=== PATIENT | male | born 1975 | race Caucasian/White ===

== ENCOUNTER 2023-02-24 13:41 | Emergency (ER) | payer MEDICAID, SELFPAY ==
[2023-02-24 13:46] VITALS: BP 140/70; PULSE 110; O2SAT 98
[2023-02-24 13:52] VITALS: BP 139/71; PULSE 95; RESP 16; TEMP 36.8; O2SAT 95; BMI 30.8
--- NOTE | 2023-02-24 14:08 | ECG_ITS ---
Test Reason : OVERDOSE Blood Pressure : / mmHG Vent. Rate : 102 BPM Atrial Rate : 102 BPM P-R Int : 132 ms QRS Dur : 084 ms QT Int : 370 ms P-R-T Axes : 079 097 069 degrees QTc Int : 482 ms Sinus tachycardia Rightward axis Borderline ECG No previous ECGs available Referred By: Generic ED Physician Electronically Signed By:NIKOLAY EVANS MD
--- NOTE | 2023-02-24 14:32 | PC.NURSE ---
Pt changed over by security belongings in . Pt is calm and cooperative. Inquiring about where he car is/was, informed this RN unaware but [employer] on scene and number given to contact. Pt denies SI, denies request for detox services. Breathing unlabored. Awakes easily.
--- NOTE | 2023-02-24 15:27 | PC.NURSE ---
Patient sitting up on stretcher speaking on the phone. Patient with no s/s of distress at this time, speaking in full sentences and breathing without issue.
--- NOTE | 2023-02-24 15:48 | ED_ITS ---
HPI - Overdose General Chief Complaint: Overdose Stated Complaint: FOUND UNRESPONSIVE,8 MG NARCAN,AWAKE Time Seen by Provider: 02/24/23 15:40 Source: patient Mode of arrival: EMS Limitations: no limitations History of Present Illness HPI Narrative: 47-year-old male who presents emergency department for evaluation of an accidental overdose on intranasal heroin. Patient states he has been clean and sober for a long time but he drank 2 nips and then used 1 bag of intranasal heroin. Patient has no memory of what happened after that. The patient was found in a car unresponsive. First responders gave the patient 8 mg of intranasal Narcan and the patient woke up. The patient has been in the emergency department for approximately 2 hours, he is awake and alert and is requesting discharge. Patient was evaluated by our recovery counselor patient states that he does not want to get in to a drug treatment program and he does not want maintenance methadone or Suboxone Related Data Allergies Allergy/AdvReac Type Severity Reaction Status Date / Time No Known Allergies Allergy Verified 02/24/23 13:57 Review of Systems Review of Systems: Yes all other systems are reviewed and are negative [facility] Past Medical History [facility] Narrative: Social history: The patient does smoke cigarettes, rarely drinks alcohol. He states he does have a history of heroin use disorder but has been clean and sober for a long period of time and he used intranasal heroin today for the 1st time in many months. Social History Alcohol intake: current Smoked in Last 30 Days: Yes Use of substances other than those prescribed or required for medical reasons: Yes Substance Use Type: Hallucinogens Substance Use Frequency: Occasionally Physical Exam Vital Signs: Vital Signs: Last Vital Signs Temp 98.3 F 02/24/23 13:52 Pulse 95 02/24/23 13:52 Resp 16 02/24/23 13:52 BP 139/71 02/24/23 13:52 Pulse Ox 95 02/24/23 13:52 O2 Del Method Room Air 02/24/23 13:52 BMI result Body Mass Index 30.8 Vital signs nor Exam: General: Awake, alert in no distress Head: Normocephalic, atraumatic EENT: PERRL, Lids normal, sclera normal, conjunctiva normal, nose normal , ears normal, throat without erythema or exudates Neck: Supple, no adenopathy, no trachea midline or C-spine tenderness Lung: breath sounds symmetric, no wheezing, rales or rhonchi Chest: symmetric movement, nontender Heart: regular rate and rhythm, normal S1, S2 no murmurs or rubs Abdomen: soft, non-tender, nondistended, normal bowel sounds Back: no vertebral tenderness, no CVAT Extremities: no deformities, moves all extremities symmetrically Neuro: Awake, alert, oriented, normal speech, cranial nerves intact, moves all extremities symmetrically Psych: Pleasant, cooperative Medical Decision Making Medical Decision Making MDM Narrative: 47-year-old male with a history of heroin use disorder who states he has been clean and sober for a significant period of time who drink 2 nips of alcohol and used 1 bag of intranasal heroin. He was found unresponsive in his car and 1st responders gave him 8 mg of intranasal Narcan. The patient has been awake and alert since receiving the Narcan. He currently has no complaints his neurologic exam was unremarkable. Patient was seen by our recovery counselor and the patient does not want any further treatment therefore he will be discharged home. He was given an intranasal Narcan to take with him. Differential Diagnosis Differential Diagnoses: The differential diagnosis associated with the presentation includes Differential diagnosis includes was not limited to heroin overdose, overdose Discharge Plan Discharge Clinical Impression: Accidental heroin overdose Qualifiers: Encounter type: initial encounter Qualified Code(s): T40.1X1A - Poisoning by heroin, accidental (unintentional), initial encounter Patient Disposition: Home, Self-Care Instructions: Opioid Use Disorder (ED) Additional Instructions: Your found unresponsive in your car, 1st responders gave you 8 mg of intranasal Narcan which caused her to wake up. Using street drugs is very dangerous since all street drugs can be contaminated with fentanyl. If you continue to use street drugs that the you can from an overdose Your are being discharged home with intranasal Narcan. If you are going to continue to use heroin, you should make sure that there is a sober person with you that is not using drugs and that this person can administer intranasal Narcan in the event that you stop breathing. Follow-up with your doctor in 2 days. Please return to the emergency department if your symptoms get worse or if you develop any symptoms that are concerning to you.
--- NOTE | 2023-02-24 15:50 | HO.SUDE ---
Met with pt in ED6h who is here for OD. Pt reports he took 2 nips and i bag of heroin nasally because someone offered it to him, but he hasn't used in over 1 year. pt informs this is his 1st overdose and that he does not intend to take heroin again. T/W reviewed harm reduction and overdose prevention with pt who verbalized understanding and has no interest in recovery resources or suppot at this time.
[2023-02-24] MEDS: Naloxone HCl Nasal TAKE HOME 4 MG SPRAY 8 MG NOSTRILALT (16:13)
[2023-02-24 17:15] VITALS: BP 138/75; PULSE 84; RESP 15; O2SAT 97
== END 2023-02-24 17:15 | disposition home or self-care (01) ==
PROVIDERS: Emergency Provider Emergency Medicine Emergency Medical Services
DX: T40.1X1A Poisoning by heroin, accidental (unintentional), initial encounter (principal); Y92.9 Unspecified place or not applicable; R00.0 Tachycardia, unspecified
CPT/HCPCS: 93005; 99283; 99285

== ENCOUNTER 2024-01-14 21:16 | Emergency (ER) | payer MEDICAID, SELFPAY ==
--- NOTE | 2024-01-14 | ECG_ITS ---
Test Reason : sob chest pain Blood Pressure : / mmHG Vent. Rate : 083 BPM Atrial Rate : 083 BPM P-R Int : 124 ms QRS Dur : 076 ms QT Int : 370 ms P-R-T Axes : 069 093 082 degrees QTc Int : 434 ms Normal sinus rhythm Rightward axis Borderline ECG When compared with ECG of 24-FEB-2023 14:04, No significant change was found Referred By: Generic ED Physician Electronically Signed By:LATESHA JONES MD
--- NOTE | ~2024-01-14 | XR_ITS ---
EXAMINATION: XR CHEST CLINICAL INFORMATION: Cough. Chest pain. Shortness of breath. COMPARISON: None available. TECHNIQUE: 2 views of the chest were obtained. FINDINGS: The lungs are clear. The cardiomediastinal silhouette is normal in size. There is no pleural effusion or pneumothorax. No acute osseous abnormality. XR/XR chest 2V IMPRESSION: No acute cardiopulmonary findings. Electronically signed by: Dante Katz MD 01/14/2024 09:52 PM EDT
[2024-01-14 21:20] VITALS: BP 133/83; PULSE 74; RESP 22; TEMP 36.7; O2SAT 97; BMI 32.5
[2024-01-14 22:02] LABS: Hematocrit 43.1 % (42.0-52.0); Hemoglobin 15.1 g/dl (14.0-18.0); Mean Corpuscular Hemoglobin 29.5 pg (27.0-33.0); Mean Corpuscular Volume 84.2 fL (80.0-98.0); Mean Platelet Volume 9.6 fL (9.4-12.4); Platelet Count 223 X10*3/uL (160-400); Red Blood Count 5.12 X10*6/uL (4.60-5.80); Red Cell Distribution Width 12.6 % (11.0-16.0); White Blood Count 11.8 X10*3/uL (4.8-10.8)
[2024-01-14 22:15] LABS: Alanine Aminotransferase 18 U/L (0-40); Albumin Level 4.5 g/dL (3.5-5.0); Alkaline Phosphatase 63 U/L (39-117); Anion Gap 14 (12-20); Aspartate Amino Transferase 20 U/L (5-37); Bilirubin Total 0.2 mg/dL (0.0-1.0); Blood Urea Nitrogen 14 mg/dL (9-16); Calcium 9.8 mg/dL (8.4-10.2); Carbon Dioxide 26 mmol/L (22-29); Chloride 106 mmol/L (96-108); Estimated Glomerular Filt Rate > 60; Glucose Random 131 mg/dL (60-115); Potassium 3.9 mmol/L (3.3-5.1); Sodium 142 mmol/L (135-145); Total Protein 7.6 g/dL (6.5-8.0)
[2024-01-14 22:38] LABS: Influenza A PCR NEGATIVE (Negative); Influenza B PCR NEGATIVE (Negative); Resp Syncy Virus RNA Qual PCR NEGATIVE (Negative); SARS COV2 PCR INHOUSE NEGATIVE (Negative)
[2024-01-15 00:26] VITALS: PULSE 98; O2SAT 99
--- NOTE | 2024-01-15 01:00 | ED.GENADULT ---
HPI - General Adult General Chief complaint: Upper Respiratory Symptoms Stated complaint: coughing/wheezing Time Seen by Provider: 01/15/24 00:47 Source: patient Mode of arrival: ambulatory Limitations: no limitations History of Present Illness ED Provider: Dr. Kathrin Berger HPI narrative: Patient comes to the emergency room complaining of cough for multiple days. Patient states that he was recently evaluated at the [facility], given antibiotics and prednisone and he is still coughing. Patient denies fever chills Related Data Previous Rx's ?Medication ?Instructions ?Recorded codeine 10 mg-guaifenesin 100 mg/5 10 ml PO Q4-6H PRN cough #120 mL 01/15/24 mL oral liquid Allergies Allergy/AdvReac Type Severity Reaction Status Date / Time No Known Allergies Allergy Verified 01/14/24 21:23 Review of Systems Review of Systems: Constitutional : No Weight loss, No Fever, No Chills, No Night Sweats, No Fatigue, No Malaise ENT/Mouth : No Hearing loss, No Ear Pain, No Nasal Congestion, No Sinus Pain, No Hoarseness, No sore throat, No Rhinorrhea, No Swallowing Difficulty Eyes: No Eye Pain, No Swelling, No Redness, No Foreign Body, No Discharge, No Vision Changes Cardiovascular : No Chest Pain, No SOB, No Dyspnea on Exertion, No Orthopnea, No Edema, No Palpitations Respiratory : Complaining of productive cough, No Wheezing, No Smoke Exposure, No Dyspnea Gastrointestinal : No Nausea, No Vomiting, No Diarrhea, No Constipation, No abdominal Pain, No Hematochezia, No Melena Genitourinary : no irregular bleeding, No Dysuria, No Urinary Frequency, No Hematuria, No Urinary Incontinence, No Urgency, No Flank Pain, No Urinary Flow Changes, No Hesitancy Musculoskeletal : No joint pain, No Myalgias, No Joint Swelling Skin : No Skin Lesions, No rash Neuro : No Weakness, No Numbness, No Paresthesias, No Loss of Consciousness, No Dizziness, No Headache Psych : No Anxiety/Panic, No Depression, No SI/HI/AH/VH, No Social Issues, Heme/Lymph: No Bruising, No Bleeding,No Lymphadenopathy Endocrine : No Polyuria, No Polydipsia, No Temperature Intolerance PMFSH Social History Social History Alcohol intake: current Smoked in Last 30 Days: Yes Use of substances other than those prescribed or required for medical reasons: No Substance Use Type: Hallucinogens Advance Directives: No Advance Directives Information Provided: No Physical Exam ED Vital Signs: Vital Signs - 24 hr 01/14/24 21:20 01/15/24 00:26 Temperature 98.1 F Pulse Rate 74 Respiratory Rate 22 H Blood Pressure 133/83 Pulse Oximetry 97 99 Oxygen Delivery Method Room Air Room Air BMI result Body Mass Index 32.5 Const Other: Appearance: Alert. Oriented X3. No acute distress. Actively coughing Eyes: Pupils equal, round and reactive to light. ENT: Pharynx normal. Neck: Normal inspection. Neck supple. No lymph nodes noted. No crepitus CVS: Normal heart rate and rhythm. Pulses normal. Normal S1 and S2 Respiratory: No respiratory distress. Breath sounds normal. No Wheezing. No rales Abdomen: Soft and nontender. No rigidity. No distention. Skin: Skin warm and dry. Normal skin color. Normal skin turgor. Extremities: No lower extremity edema. No Lacerations. No Rash Neuro: Oriented X 3. No motor deficit. No sensory deficit. Moving all extremities. No slurred speech. CN 2 through 12 grossly intact Psych: calm, cooperative, normal affect Medical Decision Making Medical Decision Making [facility] Narrative: My interpretation of labs, white blood cell count 11.8, likely reactive leukocytosis. No significant abnormality and chemistry, serology negative for influenza RSV and COVID -interpretation of x-ray, no infiltrates. -I discussed with the patient with bronchitis, patient will be coughing for 6-8 weeks if not longer. Antibiotics are not indicated at this time. However, discussed with the patient that since he rays started antibiotics to finish the course. Lab Data [facility] Lab Attestation statement: I reviewed the patient's lab results. 01/14/24 21:51 01/14/24 21:51 Labs: Lab Results 01/14/24 Range/Units 21:51 WBC 11.8 H (4.8-10.8) X10*3/uL RBC 5.12 (4.60-5.80) X10*6/uL Hgb 15.1 (14.0-18.0) g/dl Hct 43.1 (42.0-52.0) % MCV 84.2 (80.0-98.0) fL MCH 29.5 (27.0-33.0) pg MCHC 35.0 (31.0-36.0) g/dl RDW 12.6 (11.0-16.0) % Plt Count 223 (160-400) X10*3/uL MPV 9.6 (9.4-12.4) fL Absolute Nucleated RBC 0.000 (0.0-0.012) X10*3/uL Nucleated RBC % (auto) 0.0 (0.0-0.2) /100WBC Sodium 142 (135-145) mmol/L Potassium 3.9 (3.3-5.1) mmol/L Chloride 106 (96-108) mmol/L Carbon Dioxide 26 (22-29) mmol/L Anion Gap 14 (12-20) BUN 14 (9-16) mg/dL Creatinine 1.16 (0.5-1.4) mg/dL Estim Creat Clear Calc 106.0 Estimated GFR > 60 Random Glucose 131 H (60-115) mg/dL Calcium 9.8 (8.4-10.2) mg/dL Total Bilirubin 0.2 (0.0-1.0) mg/dL AST 20 (5-37) U/L ALT 18 (0-40) U/L Alkaline Phosphatase 63 (39-117) U/L Total Protein 7.6 (6.5-8.0) g/dL Albumin 4.5 (3.5-5.0) g/dL Influenza Type A (PCR) NEGATIVE (Negative) Influenza Type B (PCR) NEGATIVE (Negative) RSV RNA Qual (PCR) NEGATIVE (Negative) SARS-CoV-2 RNA (RT-PCR) NEGATIVE (Negative) Independent Interpretation I performed an independent interpretation of an: Plain X-Ray Radiology Impression Discussion of test interpretation with radiology: I have reviewed the radiologist's reading. Radiologist Impression: The lungs are clear. The cardiomediastinal silhouette is normal in size. There is no pleural effusion or pneumothorax. No acute osseous abnormality. XR/XR chest 2V IMPRESSION: No acute cardiopulmonary findings. Discharge Plan Discharge Clinical Impression: Bronchitis Patient Disposition: Home, Self-Care Instructions: Acute Bronchitis (ED) Additional Instructions: Please follow-up with your primary care physician tomorrow. If you have any worsening or new symptoms, please return to the emergency room or call 911 Prescriptions: New codeine-guaifenesin 10-100 mg/5 mL liquid 10 ml PO Q4-6H PRN (Reason: cough) Qty: 120 0RF Print Language: Panamanian
[2024-01-15 01:13] VITALS: BP 134/84; PULSE 88; RESP 18; TEMP 36.8; O2SAT 96
== END 2024-01-15 01:14 | disposition home or self-care (01) ==
PROVIDERS: Emergency Provider Emergency Medicine
DX: J40 Bronchitis, not specified as acute or chronic (principal); Z03.818 Encounter for observation for suspected exposure to other biological agents ruled out; R05.9 Cough, unspecified
CPT/HCPCS: 0241U; 36415; 71046; 80053; 85027; 93005; 99284; 99285

== ENCOUNTER → 2024-01-14 21:38 | Outpatient (BNV) | payer MEDICAID, SELFPAY | PROVIDERS: Emergency Provider Emergency Medicine; Visit Provider Internal Medicine Cardiovascular Disease | DX: R06.02 Shortness of breath (principal); R07.9 Chest pain, unspecified | CPT/HCPCS: 93010 ==

== ENCOUNTER 2024-07-27 20:52 | Emergency (ER) | payer OTHER, SELFPAY ==
[2024-07-27 20:58] VITALS: BP 130/90; PULSE 85; O2SAT 96
[2024-07-27 21:00] VITALS: BP 128/65; PULSE 78; RESP 18; TEMP 36.8; O2SAT 97; BMI 31.2
--- OUTSIDE RECORDS SUMMARY | 2024-07-27 22:28 | XMS_ITS | Encounter Summary ---
Author Organization [employer] Address [address] [place] [address] Care Team Providers Care Multimedia Author Name Role Phone Unavailable Primary Care Provider Unavailabl e Reason for Visit * Reason Onset Date Comments rs no show visit 06/15/2024 Encounter Details Date Type Department Care Team ([facility] st Contact Info) Description 06/15/2024 Telephone [facility] [address] [place] [address] Adeel Thomas, DMD [address] [place] [address] rs no show visit Social History Tobacco Use Types Packs/Day Years Used Date Smoking Tobacco: Every Day Cigarettes 0.3 0.5 Passive Smoke Exposure: Past Smokeless Tobacco: Former Alcohol Use Standard Drinks/Week Comments Never 0 (1 standard drink = 0.6 oz pur e alcohol) Sex and Gender Information Value Date Recorded Sex Assigned at Male 11/19/2022 12:04 PM EDT Legal Sex Male 12:02 PM EDT Gender Identity Male 11/19/2022 12:04 PM EDT Sexual Orientation Straight 11/19/2022 12 :04 PM EDT documented as of this encounter Miscellaneous Notes * Telephone Encounter - Seda Rivers - 06/15/2024 8:49 AM EDT Patient called in to rs no show visit from this morning 8am. He states that he had surgery a coupledays ago and took medication and overslept. He has been informed that on missed appts, there is a waiting period prior to rescheduling and office will reach out to him to reschedule appt when waitingperiod is done. Patient understood DR documented in this encounter Plan of Treatment Upcoming Encounters Date Type Department Care Team (Late st Contact Info) Description 10/03/2024 2:00 PM EDT Office Visit [facility] [address] [place] [address] Angelica Lucio MD [address] [place], [place] [id number] documented as of this encounter Visit Diagnoses Not on filedocumented in this encounter
--- OUTSIDE RECORDS SUMMARY | 2024-07-27 22:28 | XMS_ITS | Clinical Summary ---
Author Organization [employer] Address [address] [facility] [address] [place] [address] Care Team Providers Care Electrical Plumbing Supervisor Name Role Phone Unavailable Primary Care Provider Unavailabl e Allergies No known active allergies Medications Sod Fluoride-Potas sium Nitrate 1.1-5 % pasteIndicatio ns:Dental caries [place] teeth for 2 minutes, morning and night. Spit, do not rinse. Do not eat or drink anything for 30 minutes following brushing. 112 g 3 06/09/19 24 Active ibuprofen 600 MG tabletIndicati ons:Dental abscess Take 1 tablet (600 mg) by mouth every 6 (six) hours if needed for mild pain for up to 20 doses. 20 tablet 06/09/19 24 Active acetaminophen (Tylenol) 500 MG tablet Take 1 tablet (500 mg) by mouth every 6 (six) hours if needed for mild pain for up to 20 doses. 20 tablet 12/14/19 24 Active ibuprofen 600 MG tablet Take 1 tablet (600 mg) by mouth every 6 (six) hours if needed for mild pain for up to 20 doses. 20 tablet 12/14/19 24 Active nicotine (Nicoderm CQ) 14 MG/24HR patch Place 1 patch on the skin 1 (one) time each day at the same time. 42 patch 01/13/20 24 Active nicotine (Nicoderm CQ) 7 MG/24HR patch Place 1 patch on the skin 1 (one) time each day at the same time. 14 patch 01/13/20 24 Active nicotine polacrilex (Commit) 4 MG lozenge Dissolve 1 lozenge (4 mg) in the mouth every 2 (two) hours if needed for smoking cessation. 100 lozenge 01/13/20 24 Active albuterol 108 (90 Base) MCG/ACT inhaler Inhale 2 puffs every 4 (four) hours if needed for wheezing or shortness of breath. 18 g 1 01/13/20 24 025 Active Spacer/Aero-Ho lding Chambers (OptiChamber Aruna) misc 1 each every 4 (four) hours if needed (asthma). 1 each 01/13/20 24 Active acetaminophen (Tylenol) 500 MG tablet Take 2 tablets (1,000 mg) by mouth every 6 (six) hours if needed for moderate pain or fever for up to 25 doses. 50 tablet 01/13/20 24 Active ibuprofen 400 MG tablet Take 1 tablet (400 mg) by mouth every 6 (six) hours if needed for moderate pain or fever for up to 30 doses. 30 tablet 01/13/20 24 Active gabapentin (Neurontin) 600 MG tablet Take 1 tablet (600 mg) by mouth at bedtime. 30 tablet 2 07/05/19 25 026 Active azithromycin (Zithromax Z-Marshall) 250 MG tablet Take 2 tablets once on day 1, then 1 tablet 1x/day for 4 days. 6 tablet 01/13/20 24 025 Discontinued(Th erapy completed) gabapentin (Neurontin) 300 MG capsule Take 1 capsule (300 mg) by mouth if needed in the morning and at bedtime (pain). 60 capsule 01/13/20 24 025 Discontinued Active Problems Problem Noted Date Diagnosed Date Dental caries 11/19/2022 Screening for colon cancer 02/05/2022 Overview (12/18/2023): Last Assessment & Plan: Importance of colonoscopy and cologuard emphasized. Reviewed risk of missing out colonoscopy / cologuard such as missed or delayed diagnosis of colon ca, or even early . Chronic pain of left knee 12/10/2021 Overview (12/18/2023): Last Assessment & Plan: Ultrasound Guided Knee Cortisone Injection: Discussed about different treatment options including but not limited to NSAIDs, Analgesics, PT, etc. Pt prefers arthrocentesis, risk and alternatives were discussed including but not limited to joint injury, scarring, pain, infection and nerve damage. Indication: Chronic Knee pain Procedure: Comprehensive informed verbal and/or written consent was obtained. The patient was in a supine position with knee extended. Confirmation of the procedure to be performed was obtained from the patient. The patient?s knee was sterilely prepped with alcohol. The ultrasound transducer was placed to localize the patellar tendon, then using a transverse plane approach over the mid substance patellar tendon the joint space was confirmed. 70% Ethyl chloride was used to anesthetize the skin. Using a 21 gauge 2 inch needle, 2ml of Lidocaine 2%, and 1 cc of Kenolog (40mg/ml) was injected into the knee joint from the lateral approach after palpating the soft spot between Iliotibial band and the Vastus Lateralis. The needle was removed, hemostasis obtained, then Band-Aid was placed. Complications: none Blood Loss: minimal Assessment: Patient tolerated procedure and remained stable. Post Procedure Instructions: -The patient was instructed to ice their knee upon leaving clinic and refrain from overuse over the next 3 days. -The patient was instructed to call the office with any usual pain, swelling, or redness occurred in the injected area. - Diabetic patients made of aware of potential side effect of elevated bloods sugars beyond their normal for a few days following the injection. Instructed to monitor BS closer a few days following injection. -The patient was given a follow up appointment to evaluate response to the injection. Anxiety 04/30/2021 Dysthymia 04/30/2021 Chronic pain syndrome 09/13/2020 Lack of immunity to hepatiti s B virus demonstrated by serologic test 09/13/2020 Annual physical exam 09/06/2020 Type 2 diabetes mellitus wit hout complication, without long-term current use of insulin 02/07/2020 Overview (12/18/2023): Last Assessment & Plan: Diabetes is newly identified. Lab Results Component Value Date HGBA1C 7.1 SEE COMMENT (H) 02/02/2020 Goals of Hgba1c and fasting sugars discussed with patient. Goal A1c <7 discussed Encouraged regular exercise Dietary recommendations discussed Risks of poorly controlled diabetes discussed. Medication changes per orders. Reminded to bring in blood sugar log at next visit. Discussed foot care. Discussed sick day management. Discussed ways to avoid symptomatic hypoglycemia. Diabetes will be reassessed in 3 months. Opioid dependence 01/30/2020 Elevated liver function tests 01/24/2020 Hepatitis C 01/24/2020 Overview (12/18/2023): Last Assessment & Plan: PA needed for epclusa. Waiting for results of ALIZA fibrosure. Once this isresulted, all clinical information will be sent to [facility] for approval. Pt advised of this. Substance abuse 01/24/2020 Bacteremia 01/04/2020 Psoas abscess, right 01/04/2020 Renal cyst 12/19/2019 Acute respiratory failure with hypoxia 0 Delirium 12/17/2019 Weakness of both lower extremities 12/17/2019 Diarrhea, unspecified 12/14/2019 Thrombocytopenia due to non-immune destruction 0 12/08/2019 Chest pain 12/06/2019 Cocaine abuse 12/06/2019 Overview (12/18/2023): Last Assessment & Plan: Strong counseling offered regarding cocaine use. Discussed in depth about its effects and side effects to his body including risk of Heart attack or stroke. Epigastric pain 12/06/2019 Insomnia 10/25/2018 Nicotine dependence, other tobacco product, unco mplicated 10/25/2018 Overview (12/18/2023): Last Assessment & Plan: Tobacco use is suboptimally controlled. The patient is not ready to quit, but discussed the relevance, risks of smoking, rewards of quitting, and discussed barriers. Total time spent counselling on smoking cessation was 4 minutes. The patient was provided the [place] State Smokers Quitline 6-298-OQ-QUITS Risks of smoking including chronic lung disease, heart attack, stroke, and cancer were discussed with the patient. Discussed the role of nicotine replacements, zyban, or Chantix as options to assist in smoking cessation. Importance of behavioral modification discussed. Tobacco use will be reassessed at the next regular appointment. Neck pain 10/25/2018 Gastroesophageal reflux disease 01/07/2015 Malaise and fatigue 10/17/2014 Pain in limb 10/17/2014 Closed fracture of mandible 11/10/2011 Encounters Date Type Department Care Team Description 07/04/2024 10:00 AM EDT Office Visit [facility] [address] [place], [place] [id number] Name, MD Dexter Low back pain at multiple sites (Primary Dx); History of diabetes mellitus 06/17/2024 Population Health Risk Score [facility] () Department [address] [id number] Provider, Population Health Generic 06/15/2024 Telephone [facility] [address] [place] [address] Adeel Thomas DMD rs no show visit 05/16/2024 Telephone [facility] [address] [place], [place] [id number] Adeel Thomas DMD rs no show from Last 3 Months Immunizations Name Administration Dates Next Due TD (adult), 2 Lf tetanus tox oid, preservative free, adsorbed 06/18/2023 Social History Tobacco Use Types Packs/Day Years Used Date Smoking Tobacco: Every Day Cigarettes 0.3 0.5 Passive Smoke Exposure: Past Smokeless Tobacco: Former Tobacco Cessation:Ready to Q uit: Not Asked; Counseling Given: Not Answered Alcohol Use Standard Drinks/Week Comments Never 0 (1 standard drink = 0.6 oz pur e alcohol) Sex and Gender Information Value Date Recorded Sex Assigned at Male 11/19/2022 12:04 PM EDT Legal Sex Male 12:02 PM EDT Gender Identity Male 11/19/2022 12:04 PM EDT Sexual Orientation Straight 11/19/2022 12 :04 PM EDT Last Filed Vital Signs Vital Sign Reading Time Taken Comments Blood Pressure 131/83 07/04/2024 9:31 AM EDT Pulse 84 07/04/2024 9:31 AM EDT Temperature 36.7 ??C (98 ??F) 07/04/2024 9:31 AM EDT Respiratory Rate 18 07/04/2024 9:31 AM EDT Oxygen Saturation 97% 01/13/2024 11:20 AM EDT Inhaled Oxygen Concentration - - Weight 111 kg (244 lb 12.8 oz) 07/04/2024 9:31 A M EDT Height 188 cm (6' 2 ) 07/04/2024 9:31 AM EDT Body Mass Index 31.43 07/04/2024 9:31 AM EDT Plan of Treatment Upcoming Encounters Date Type Department Care Team ([facility] st Contact Info) Description 10/03/2024 2:00 PM EDT Office Visit [facility] [address] [place] [address] Angelica Lucio MD [address] [place] [address] Health Maintenance Due Date Last Done Comments CT Colonography 1976 Colonoscopy 1976 Colorectal Cancer Screening 1976 Dental Prophylaxis 1976 Depression Screening 1976 FIT DNA/Cologuard 1976 FIT 1976 FOBT 1976 HIV Screening 1976 Lipid Panel 1976 SDOH Screening 1976 Sigmoidoscopy 1976 Diabetes: Foot Exam 1986 Eye Exam 1986 Alcohol/Substance Use Screening 1988 Family Planning (PISQ) 06/07/1991 Diabetes: Urine Protein Screening 06/07/1995 Pneumococcal Vaccine: Pediatrics (0 to 5 Years) and At-Risk Patients (6 to 49) Years) (1 of 2 - PCV) 06/07/1995 Hepatitis A Vaccines (2 of 2 - Risk 2-dose series) 03/15/2021 09/13/2020 Hepatitis B Vaccines (3 of 3 - 19+ 3-dose series) 09/03/2021 07/09/2021, 09/13/2020 COVID-19 Vaccine ( - season) 2023 Influenza Vaccine (#1) 2023 , 11/19/2011, 03/11/2007 Dental Oral Exam 12/11/2023 06/09/2023 Dental X-Ray: Bitewings 06/09/2024 06/09/2023 Diabetes: Hemoglobin A1C 01/03/2025 07/04/2024 Tobacco Screening 07/04/2025 07/04/2024 Zoster Vaccines (1 of 2) 2026 Dental X-Ray: Full Mouth 06/09/2026 06/09/2023, 11/04 DTaP/Tdap/Td Vaccines (5 - Td or Tdap) 06/17/2033 06/18/2023, 12/28/2021, 07/09/2021, Additional history exists RSV Patients and Patients Aged 60 years or older (1 - 1-dose 75+ series) 06/07/2051 HIB Vaccines Aged Out No longer eligi ble based on patient's age to complete this topic HPV Vaccines Aged Out No longer eligi ble based on patient's age to complete this topic IPV Vaccines Aged Out No longer eligi ble based on patient's age to complete this topic Meningococcal Vaccine Aged Out No demond consuelo eligible based on patient's age to complete this topic RSV under 20 months Aged Out No longe r eligible based on patient's age to complete this topic Rotavirus Vaccines Aged Out No longer eligible based on patient's age to complete this topic Procedures Procedure Name Priority Date/Time Associated Diagnosis Comments POCT GLYCATED HEMOGLOBIN, TOTAL Routine 07/04/2024 9:45 AM EDT History of diabetes mellitus POCT GLUCOSE Routine 07/04/2024 9:45 AM EDT History of diabetes mellitus AMB REFERRAL TO ORTHOPAEDIC SURGERY Routine 06/09/2024 Left elbow pain Swelling of left elbow INTRAORAL - COMPLETE SERIES OF RADIOGRAPHIC IMAGES Routine 06/09/2023 3:30 PM EST Dental abscess Dental caries Gingivitis COMPREHENSIVE ORAL EVALUATION - NEW OR ESTABLISHED PATIENT Routine 06/09/2023 3:30 PM EST Dental abscess Dental caries Gingivitis from Last 3 Months or Most Recently Relevant to Health Maintenance Results * POCT A1C (07/04/2024 9:45 AM EDT) Hemoglobin A1C 6.0 4.0 - 6.0 % Blood 07/04/2024 9:45 AM EDT us Dexter Name POINT OF CARE TEST ENTER/EDIT OR DERABLES Final Result * POCT glucose manually resulted (07/04/2024 9:45 AM EDT) Glucose Blood, POC 102 60 - 200 mg/dL Blood Capillary blood specimen / Unknown 07/04/2024 9:45 AM EDT us Dexter Molina MD POINT OF CARE TEST ENTER/EDIT OR DERABLES Final Result * Referral to Orthopaedic Surgery (06/09/2024) us Andres Veliz MD OUTPATIENT REFERRAL ORDERABLES E dited Result - Final from Last 3 Months Insurance [facility] C[facility] MEDICAID STAND ADULT
--- OUTSIDE RECORDS SUMMARY | 2024-07-27 22:28 | XMS_ITS | Encounter Summary ---
Author Organization [employer] Address [address] [place] [address] [address] [place] [address] Care Team Providers Care Hot Walker Name Role Phone Unavailable Primary Care Provider Unavailabl e Reason for Visit * Reason Onset Date Comments rs no show 05/16/2024 Encounter Details Date Type Department Care Team ([facility] Contact Info) Description 05/16/2024 Telephone [facility] [address] [place] [address] Adeel Thomas, DMD [address] [place] [address] rs no show Social History Tobacco Use Types Packs/Day Years [...] * Telephone Encounter - Seda Rivers - 05/16/2024 11:43 AM EST Patient is on waiting period from no show since 03/23/2024 and would like to be scheduled. Patient is aware that there are currently no appts available and that they will get a call from office to rsDR documented in this encounter Plan of Treatment Upcoming Encounters Date Type Department Care Team (Late st Contact Info) Description 10/03/2024 2:00 PM EDT Office Visit [facility] [address] [place] [address] Angelica Lucio MD [address] [place] [address] documented as of this encounter Visit Diagnoses Not on filedocumented in this encounter
--- OUTSIDE RECORDS SUMMARY | 2024-07-27 22:28 | XMS_ITS | Encounter Summary ---
Author Organization [employer] Address [address] [facility] [address] [place] [address] Care Team Providers Care Fisheries Management Biologist Name Role Phone Unavailable Primary Care Provider Unavailabl e Reason for Visit * Reason Onset Date Comments no show reschedule 03/23/2024 Encounter Details Date Type Department Care Team ([facility] st Contact Info) Description 03/23/2024 Telephone [facility] [address] [place] [address] Adeel Thomas, DMD [address] [place] [address] no show reschedule Social History Tobacco Use Types Packs/Day Years [...] * Telephone Encounter - Seda Rivers - 03/23/2024 9:31 AM EST Patient called in acknowledging he had missed appt today. He wanted to reschedule. Patient has beeninformed that he will get a call from office to . There is currently a wait list and when it is his turn he will get a call. Patient understood DR documented in this encounter Plan of Treatment Upcoming Encounters Date Type Department Care Team (Late st Contact Info) Description 10/03/2024 2:00 PM EDT Office Visit [facility] [address] [place] [address] Angelica Lucio MD [address] [place] [address] documented as of this encounter Visit Diagnoses Not on filedocumented in this encounter
--- NOTE | 2024-07-27 23:10 | PC.NURSE ---
Pt no longer wants to be seen in ED. wants to be with the other occupant of the car in their care space in the main ED.
== END 2024-07-27 23:12 | disposition left against medical advice (07) ==
PROVIDERS: Emergency Provider Emergency Medicine
DX: S46.912A Strain of unspecified muscle, fascia and tendon at shoulder and upper arm level, left arm, initial encounter (principal); V43.52XA Car driver injured in collision with other type car in traffic accident, initial encounter; Y93.9 Activity, unspecified; Y92.488 Other paved roadways as the place of occurrence of the external cause; Y99.9 Unspecified external cause status; M46.1 Sacroiliitis, not elsewhere classified; R06.02 Shortness of breath; R07.9 Chest pain, unspecified; M54.2 Cervicalgia; M25.512 Pain in left shoulder; M54.50 Low back pain, unspecified; R51.9 Headache, unspecified
CPT/HCPCS: 99281

== ENCOUNTER 2024-07-29 13:24 | Emergency (ER) | payer OTHER, SELFPAY ==
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
[2024-07-29 13:29] VITALS: BP 134/71; PULSE 91; RESP 18; TEMP 37; O2SAT 97; BMI 31.7
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
[2024-07-29] MEDS: Ketorolac Tromethamine 30 MG/ML VIAL IM (15:16)
[2024-07-29] MEDS: Lidocaine 4 % Patch ADH..PATCH 1 PATCH TRANSDERMA (15:16)
--- OUTSIDE RECORDS SUMMARY | 2024-07-29 15:43 | XMS_ITS | Encounter Summary ---
Author Organization [employer] Address [address] [facility] [address] [place] [address] Care Team Providers Care Blasting Contract Man Name Role Phone Unavailable Primary Care Provider Unavailabl e Reason for Visit * Reason Onset Date Comments rs no show visit 06/15/2024 Encounter Details Date Type Department Care Team ([facility] st Contact Info) Description 06/15/2024 Telephone [facility] [address] [place] [address] Adeel Thomas, DMD [address] [place] [address] rs no show visit Social History Tobacco [...] Description 10/03/2024 2:00 PM EDT Office Visit [facility] [address] [place] [address] Angelica Lucio MD [address] [place], [place] [phone] documented as of this encounter Visit Diagnoses Not on filedocumented in this encounter
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
--- OUTSIDE RECORDS SUMMARY | 2024-07-29 15:43 | XMS_ITS | Encounter Summary ---
Author Organization [employer] Address [address] [place] [address] [address]t [place] [address] Care Team Providers Care Supervisor Tower Name Role Phone Unavailable Primary Care Provider Unavailabl e Reason for Visit * Reason Onset Date Comments rs no show 05/16/2024 Encounter Details Date Type Department Care Team ([facility] Contact Info) Description 05/16/2024 Telephone [facility] [address] [place] [address] Adeel Thomas, DMD [address] [place] [address] rs no show Social History Tobacco Use [...] Description 10/03/2024 2:00 PM EDT Office Visit [facility] [address] [place] [address] Angelica Lucio MD [address] [place] [address] documented as of this encounter Visit Diagnoses Not on filedocumented in this encounter
--- OUTSIDE RECORDS SUMMARY | 2024-07-29 15:43 | XMS_ITS | Encounter Summary ---
Author Organization [employer] Address [address] [facility] [address] [place] [address] Care Team Providers Care Home Health Travel Ot Name Role Phone Unavailable Primary Care Provider Unavailabl e Reason for Visit * Reason Onset Date Comments no show reschedule 03/23/2024 Encounter Details Date Type Department Care Team ([facility] st Contact Info) Description 03/23/2024 Telephone [facility] ADULT DENTAL [address] [place] [address] Adeel Thomas, DMD [address] [place] [address] no show reschedule Social History Tobacco Use [...] Description 10/03/2024 2:00 PM EDT Office Visit [facility] MED & PEDS [address] [place] [address] Angelica Lucio MD [address] [place] [address] documented as of this encounter Visit Diagnoses Not on filedocumented in this encounter
[2024-07-29 16:15] VITALS: BP 134/71; PULSE 91; RESP 18; TEMP 37; O2SAT 97
== END 2024-07-29 16:16 | disposition home or self-care (01) ==
PROVIDERS: Emergency Provider Emergency Medicine
DX: S46.912A Strain of unspecified muscle, fascia and tendon at shoulder and upper arm level, left arm, initial encounter (principal); V43.52XA Car driver injured in collision with other type car in traffic accident, initial encounter; M46.1 Sacroiliitis, not elsewhere classified; M54.2 Cervicalgia; Y93.89 Activity, other specified; Y92.414 Local residential or business street as the place of occurrence of the external cause; Y99.9 Unspecified external cause status
CPT/HCPCS: 70450; 72100; 72125; 73030; 96372; 99284; J1885

== ENCOUNTER → 2024-07-29 13:31 | Outpatient (BNV) | payer MEDICAID, SELFPAY | PROVIDERS: Emergency Provider Emergency Medicine; Visit Provider Radiology Diagnostic Radiology | DX: R51.9 Headache, unspecified (principal); M54.9 Dorsalgia, unspecified; M25.512 Pain in left shoulder; M54.2 Cervicalgia | CPT/HCPCS: 70450; 72100; 72125; 73030 ==

== ENCOUNTER 2024-10-04 08:32 | Outpatient (REF) | payer OTHER, SELFPAY ==
--- OUTSIDE RECORDS SUMMARY | 2024-10-04 08:40 | XMS_ITS | Encounter Summary ---
Author Organization [employer] Address [address] [place] [address] [address] [place] [address] Care Team Providers Care Interlocker Maintainer Name Role Phone Angelica Lucio MD Primary Care Provider Reason for Visit * Reason Onset Date Comments no show reschedule 03/23/2024 Encounter Details Date Type Department Care Team ([facility] st Contact Info) Description 03/23/2024 Telephone [facility] ADULT DENTAL [address] [place] [address] Adeel Thomas, DMD [address] [place] [address] no show reschedule Social History Tobacco Use [...] he will get a call. Patient understood documented in this encounter Plan of Treatment Upcoming Encounters Date Type Department Care Team (Late st Contact Info) Description 10/04/2024 9:30 AM EDT Office Visit [facility] ADULT DENTAL [address] [place], [place] [phone] Adeel Thomas DMD [address] [place], [place] [phone] Arrived 01/02/2025 2:45 PM EDT Office Visit [facility] MED & PEDS [address] [place], [place] [phone] Angelica Lucio MD [address] [place] [address] documented as of this encounter Visit Diagnoses Not on filedocumented in this encounter Care Teams Interlocker Maintainer Relationship Specialty Start Date End Date Angelica Lucio MD [address] [place] [phone] PCP - General Internal Medicine 10/03/24 documented as of this encounter
[2024-10-04 14:31] LABS: MANUAL DIFF FLAG NO
[2024-10-04 14:43] LABS: Hematocrit 44.5 % (42.0-52.0); Hemoglobin 15.4 g/dl (14.0-18.0); Imm Gran Abs Auto 0.04 X10*3/uL (0.00-0.03); Imm Gran Pct Auto 0.4 % (0.0-0.4); Lymphocytes Absolute Auto 2.4 X10*3/uL (1.2-4.9); Mean Corpuscular HGB Conc 34.6 g/dl (31.0-36.0); Mean Corpuscular Hemoglobin 29.8 pg (27.0-33.0); Mean Corpuscular Volume 86.1 fL (80.0-98.0); NRBC Abs Auto 0.000 X10*3/uL (0.0-0.012); NRBC Pct Auto 0.0 /100WBC (0.0-0.2); Platelet Count 210 X10*3/uL (160-400); Red Blood Count 5.17 X10*6/uL (4.60-5.80); White Blood Count 10.2 X10*3/uL (4.8-10.8)
[2024-10-04 15:03] LABS: Alanine Aminotransferase 22 U/L (0-40); Albumin Level 4.3 g/dL (3.5-5.0); Alkaline Phosphatase 74 U/L (39-117); Anion Gap 13 (12-20); Aspartate Amino Transferase 22 U/L (5-37); Blood Urea Nitrogen 14 mg/dL (9-16); Calcium 8.9 mg/dL (8.4-10.2); Carbon Dioxide 26 mmol/L (22-29); Chloride 108 mmol/L (96-108); Cholesterol 126 mg/dL (<200); Estimated Glomerular Filt Rate > 60; HDL Cholesterol 30 mg/dL (>40); Potassium 4.6 mmol/L (3.3-5.1); Sodium 142 mmol/L (135-145); Total Protein 6.9 g/dL (6.5-8.0); Triglycerides 107 mg/dL (<150)
[2024-10-05 08:25] LABS: HIV Num 1 0.05 S/CO (0.00-0.99); ~HepC Num1 15.01 S/CO (0.00-0.79); ~Hepatitis C Antibody Reactive (Nonreactive)
[2024-10-10 17:53] LABS: HCV Log PCR <1.18 NOT DETECTED Log IU/mL (NOT DETECTED); HepC Viral Load <15 NOT DETECTED IU/mL (NOT DETECTED)
== END 2024-10-04 08:33 | disposition home or self-care (01) ==
LOC: HO.CHCLDS 08:32
PROVIDERS: Visit Provider Internal Medicine
DX: Z86.39 Personal history of other endocrine, nutritional and metabolic disease (principal); F32.A Depression, unspecified; F41.9 Anxiety disorder, unspecified
CPT/HCPCS: 36415; 80053; 80061; 84443; 85025; 86803; 87389; 87522

== ENCOUNTER 2025-02-23 13:47 | Outpatient (REF) | payer OTHER, SELFPAY ==
--- OUTSIDE RECORDS SUMMARY | 2025-02-23 13:00 | XMS_ITS | Encounter Summary ---
Author Organization [employer] Address [address] [facility] [address] [place] [address] Care Team Providers Care Senior Manager Quality Assurance Name Role Phone Angelica Lucio MD Primary Care Provider Reason for Visit * Reason Comments Follow-up Encounter Details Date Type Department Care Team ([facility] Contact Info) Description 02/23/2025 1:00 PM EST Office Visit [facility] CHC MED & PEDS [address] [place], [place] [phone] Angelica Lucio MD [address] [place] [address] Anxiety and depression (Primary Dx); Smoking addiction; Type 2 diabetes mellitus without complication, without long-term current use of insulin (HCC); Discharge from penis; Routine screening for STI (sexually transmitted infection) Social History Tobacco Use Types Packs/Day Years Used Date Smoking Tobacco: Every Day Cigarettes 0.3 0.5 Passive Smoke Exposure: Past Smokeless Tobacco: Former Alcohol Use Standard Drinks/Week Comments Never 0 (1 standard drink = 0.6 oz pur e alcohol) Depression Answer Date Recorded Patient Health Questionnaire-9 Score 19 10/03/2024 Patient Health Questionnaire-9 Score 19 10/03/2024 Last PHQ-9: Questionnaire Data Not on file 0 10/03/2024 Housing Stability Answer Date Recorded What is your housing situation today? I have piero drake 10/03/[address] you li ve. Do you have problems with any of the following? None of the above 10/03/2024 Food Insecurity Answer Date Recorded Within the past 12 months, y ou worried that your food would run out before you got money to buy more: Never True 09/26/2024 Within the past 12 months,th e food you bought just didn't last and you didn't have enough money to get more: Never True Transportation Answer Date Recorded In the past 12 months, has l ack of transportation kept you from medical appts, meetings, work or from getting things needed for daily living? No 09/26/2024 Utilities Answer Date Recorded In the past 12 months, has t he electric, gas, oil or water company threatened to shut off services in your home? No 09/26/2024 Depression Answer Date Recorded Patient Health Questionnaire-2 Score 6 10/03/2024 Internet Access Answer Date Recorded Internet Access Q1 Yes 09/26/2024 Internet Access Q2 Not on file 09/26/2024 Sex and Gender Information Value Date Recorded Sex Assigned at Male 11/19/2022 12:04 PM EDT Legal Sex Male 12:02 PM EDT Gender Identity Male 11/19/2022 12:04 PM EDT Sexual Orientation Straight 11/19/2022 12 :04 PM EDT documented as of this encounter Last Filed Vital Signs Vital Sign Reading Time Taken Comments Blood Pressure 126/71 02/23/2025 1:13 PM EST Pulse 91 02/23/2025 1:13 PM EST Temperature - - Respiratory Rate 20 02/23/2025 1:13 PM EST Oxygen Saturation 97% 02/23/2025 1:13 PM EST Inhaled Oxygen Concentration - - Weight 103 kg (227 lb) 02/23/2025 1:13 PM EST Height 188 cm (6' 2 ) 02/23/2025 1:13 PM EST Body Mass Index 29.15 02/23/2025 1:13 PM EST documented in this encounter Progress Notes * Angelica Lucio MD - 02/23/2025 1:00 PM EST SUBJECTIVE Gonzalo Benoit is a 49 y.o. male who presents for Follow-up. HPI Gonzalo Benoit, 49-year-old male - Had sexual intercourse with one partner in [place] on July 31, 2024, with condom breakage - Developed yellowish genital discharge and redness starting around August 02, 2024 - Reports burning sensation during urination - History of anxiety and depression, previously started on Paxil, stopped after 3-4 days, no side effects reported - Reports ongoing stress related to family circumstances and caregiving responsibilities - Smokes approximately 15 cigarettes per day, not attempting to quit Problem List[1] Allergies[2] Medications Ordered Prior to Encounter[3] Review of Systems Constitutional: Negative for activity change, appetite change, chills and diaphoresis. HENT: Negative for dental problem, drooling and ear discharge. Eyes: Negative for pain and itching. Respiratory: Negative for cough, choking and chest tightness. Cardiovascular: Negative for palpitations and leg swelling. Gastrointestinal: Negative for abdominal pain, anal bleeding and blood in stool. Endocrine: Negative for cold intolerance and heat intolerance. Genitourinary: Negative for flank pain, frequency and genital sores. Musculoskeletal: Negative for back pain. Neurological: Negative for light-headedness, numbness and headaches. Psychiatric/Behavioral: Negative for agitation, confusion and decreased concentration. OBJECTIVE There were no vitals filed for this visit. Physical Exam Constitutional: General: He is not in acute distress. Appearance: Normal appearance. He is not ill-appearing, toxic-appearing or diaphoretic. Cardiovascular: Rate and Rhythm: Normal rate. Pulmonary: Effort: Pulmonary effort is normal. Abdominal: Palpations: Abdomen is soft. Genitourinary: Penis: Discharge present. Comments: Yellowish discharge Neurological: General: No focal deficit present. Mental Status: He is alert. Psychiatric: Mood and Affect: Mood normal. Assessment/Plan Assessment/Plan Diagnoses and all orders for this visit: Anxiety and depression Smoking addiction - nicotine (Nicoderm CQ) 21 MG/24HR patch; Place 1 patch on the skin 1 (one) time each day at the same time. Type 2 diabetes mellitus without complication, without long-term current use of insulin ([facility]) - POCT Glucose Discharge from penis Comments: Gonococcal urethritis most likely Orders: - cefTRIAXone (Rocephin) vial 500 mg - doxycycline (Vibra-Tabs) 100 MG tablet; Take 1 tablet (100 mg) by mouth 2 times daily for 10 days. Take with a full glass of water and do not lie down for at least 30 minutes after. - Chlamydia/N. Gonorrhoeae RNA, TMA, Urogenitial - HIV-1/2 Antigen and Antibodies, Fourth Generation, with Reflexes; Future - Hepatitis C Antibody with Reflex to HCV, RNA, Quantitative, Real-Time PCR; Future - RPR (Monitor) with Reflex to Titer; Future - Urinalysis w/reflex microscopic; Future - Trichomonas vaginalis RNA, Qualitative, TMA, Males; Future Routine screening for STI (sexually transmitted infection) - Chlamydia/N. Gonorrhoeae RNA, TMA, Urogenitial - HIV-1/2 Antigen and Antibodies, Fourth Generation, with Reflexes; Future - Hepatitis C Antibody with Reflex to HCV, RNA, Quantitative, Real-Time PCR; Future - RPR (Monitor) with Reflex to Titer; Future - Urinalysis w/reflex microscopic; Future - Trichomonas vaginalis RNA, Qualitative, TMA, Males; Future Anxiety and depression: - Anxiety and depression being managed with Paxil. No adverse side effects reported. Medication nottaken consistently; advised to continue for 8 weeks to assess response. - Continue Paxil as prescribed. Monitor for response over 8 weeks. Titrate dosage if no response. Smoking addiction: - Smoking addiction persists. Patient smokes approximately 15 cigarettes per day. Difficulty quitting noted. - Discussed need for higher-dose nicotine replacement (24 mg). Continue to monitor smoking status. Type 2 diabetes mellitus without complication, without long-term current use of insulin ([facility]): - Type 2 diabetes mellitus without complication. Blood glucose measured at 67 mg/dL, within acceptable range. - Continue current management. Monitor blood glucose as needed. Discharge from penis: - Penile discharge with associated irritation and dysuria following condom break during sexual intercourse. Empiric treatment initiated. - Administered 100 mg IV injection and prescribed doxycycline twice daily for 7 days. Ordered urinalysis to confirm etiology. Follow-up scheduled in 1 month. Routine screening for STI (sexually transmitted infection): - Routine STI screening indicated due to recent unprotected sexual exposure. - Ordered comprehensive STI screening. Results to be reviewed at follow-up visit. [1] Patient Active Problem List Diagnosis Dental caries Acute respiratory failure with hypoxia (CMS/HCC) ([facility]) Annual physical exam Screening for colon cancer Bacteremia Anxiety Chest pain Chronic pain of left knee Chronic pain syndrome Closed fracture of mandible (CMS/HCC) ([facility]) Cocaine abuse ([facility]) Delirium Diarrhea, unspecified Dysthymia Elevated liver function tests Epigastric pain Gastroesophageal reflux disease Hepatitis C Insomnia Lack of immunity to hepatitis B virus demonstrated by serologic test Malaise and fatigue Nicotine dependence, other tobacco product, uncomplicated Opioid dependence ([facility]) Neck pain Pain in limb Psoas abscess, right (CMS/HCC) (HCC) Renal cyst Substance abuse (CMS/HCC) (HCC) 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 (Patient not taking: Reported on 02/07/2025) 18 g 1 gabapentin (Neurontin) 600 MG tablet Take 1 tablet (600 mg) by mouth 2 times daily. 60 tablet 2 ibuprofen 400 MG tablet Take 1 tablet (400 mg) by mouth every 6 (six) hours if needed for moderate pain or fever for up to 30 doses. 30 tablet 0 ibuprofen 600 MG tablet Take 1 tablet (600 mg) by mouth every 6 (six) hours if needed for mild painfor up to 20 doses. 20 tablet 0 nicotine (Nicoderm CQ) 14 MG/24HR patch Place 1 patch on the skin 1 (one) time each day at the sametime. (Patient not taking: Reported on 02/07/2025) 42 patch 0 nicotine (Nicoderm CQ) 7 MG/24HR patch Place 1 patch on the skin 1 (one) time each day at the same time. (Patient not taking: Reported on 02/07/2025) 14 patch 0 nicotine (Nicoderm, Step 3) 7 MG/24HR patch PLACE 1 PATCH ON THE SKIN 1 TIME EACH DAY AT THE SAME TIME. 28 patch 0 nicotine polacrilex (Commit) 4 MG lozenge Dissolve 1 lozenge (4 mg) in the mouth every 2 (two) hours if needed for smoking cessation. (Patient not taking: Reported on 02/07/2025) 100 lozenge 0 PARoxetine (Paxil) 10 MG tablet Take 1 tablet (10 mg) by mouth in the morning. 30 tablet 11 Sod Fluoride-Potassium Nitrate 1.1-5 % paste Alborn teeth for 2 minutes, morning and night. Spit, donot rinse. Do not eat or drink anything for 30 minutes following brushing. 112 g 3 Sodium Fluoride 1.1 % cream Alborn teeth for 2 minutes, morning and night. Spit, do not rinse. Do not eat or drink anything for 30 minutes following use. (Patient not taking: Reported on 02/07/2025) 112 g 3 Spacer/Aero-Holding Chambers (OptiChamber Aruna) misc 1 each every 4 (four) hours if needed (asthma). (Patient not taking: Reported on 02/07/2025) 1 each 0 [DISCONTINUED] nicotine (Nicoderm, Step 3) 7 MG/24HR patch PLACE 1 PATCH ON THE SKIN 1 TIME EACH DAY AT THE SAME TIME. 28 patch 0 No current facility-administered medications on file prior to visit. documented in this encounter Plan of Treatment Upcoming Encounters Date Type Department Care Team (Late st Contact Info) Description 03/10/2025 3:00 PM EST Office Visit [facility] ADULT DENTAL [address] [place], [place] [phone] Adeel Thomas DMD [address] [place] [address] 03/29/2025 9:45 AM EST Office Visit [facility] MED & PEDS [address] [place], [place] [phone] Angelica Lucio MD [address] [place], [place] [phone] 06/08/2025 11:00 AM EST Office Visit [facility] OPTOMETRY [address] [place], [place] [phone] TarkaVerenice, OD [address] [place] [address] Scheduled Orders Name Type Priority Associated Diagnoses Orde r Schedule Chlamydia/N. Gonorrhoeae RNA, TMA, Urogenitial Microbiology Routine Discharge from penis Routine screening for STI (sexually transmitted infection) Ordered: 02/23/2025 HIV-1/2 Antigen and Antibodies, Fourth Generation, with Reflexes Lab Routine Discharge from penis Routine screening for STI (sexually transmitted infection) Expected: 02/23/2025 (Approximate), Expires: 02/23/2026 Hepatitis C Antibody with Reflex to HCV, RNA, Quantitative, Real-Time PCR Lab Routine Discharge from penis Routine screening for STI (sexually transmitted infection) Expected: 02/23/2025, Expires: 02/23/2026 RPR (Monitor) with Reflex to Titer Lab Routine Discharge from penis Routine screening for STI (sexually transmitted infection) Expected: 02/23/2025, Expires: 02/23/2026 Trichomonas vaginalis RNA, Qualitative, TMA, Males Lab Routine Discharge from penis Routine screening for STI (sexually transmitted infection) Expected: 02/23/2025, Expires: 02/23/2026 documented as of this encounter Goals Goal Patient Goal Type Associated Problems Recent Progress Patient-Stated? Author Help patients manage their type 2 diabetes Care Plan Help patients manage their type 2 diabetes Cally Garcia MA Patient has chronic kidney disease Care Plan Patient has chronic kidney disease Cally Garcia MA documented as of this encounter Procedures Procedure Name Priority Date/Time Associated Diagnosis Comments POCT GLUCOSE Routine 02/23/2025 2:15 PM EST Type 2 diabetes mellitus without complication, without long-term current use of insulin ([facility]) URINALYSIS WITH REFLEX MICROSCOPIC Routine 02/23/2025 1:50 PM EST Discharge from penis Routine screening for STI (sexually transmitted infection) documented in this encounter Results * POCT Glucose (02/23/2025 2:15 PM EST) Glucose Blood, POC 67 60 - 200 mg/dL QC Media Lot # [id number] Lot# Expiration Date Comment:random Blood Capillary blood specimen / Unknown 02/23/2025 2:15 PM EST Angelica Lucio MD POINT OF CARE TEST ENTER/ED IT ORDERABLES Final Result * (ABNORMAL) Urinalysis w/reflex microscopic (02/23/2025 1:50 PM EST) Color Urine Yellow [facility] Appearance Urine Clear [facility] PH 6.0 5.0 - 9.0 [facility] Glucose Urine UA Negative Negative mg/dL [facility] Urine Blood Negative Negative [facility] Specific [place] - Urine 1.015 1.005 - 1.025 [facility] Urine Protein Negative Neg-Trace mg/dL [facility] Urine Ketones Negative Negative mg/dL [facility] Nitrite Urine Negative Negative [facility] Leukocyte Esterase Urine Moderate (2+)(A) Negative [facility] Urine (Urine, Random) 02/23/2025 1:50 PM EST 02/23/2025 5:55 PM EST Narrative [facility] - 02/23/2025 6:18 PM EST [id number], Clean Catch us Angelica Lucio MD LAB URINE ORDERABLES Final Result [facility] [address] [place] [address] [phone] documented in this encounter Visit Diagnoses Diagnosis Anxiety and depression- Primary Smoking addiction Type 2 diabetes mellitus without complication, without long-term current use of insulin (HCC) Discharge from penis Routine screening for STI (sexually transmitted infection) Screening examination for venereal disease documented in this encounter Administered Medications Inactive Administered Medications - up to 3 most recent administrations Medication Order MAR Action Action Date Dose Rate Site cefTRIAXone (Rocephin) vial 500 mg 500 mg, Intramuscular, Once, On Yael 02/23/25 at 1330, For 1 dose, Suspected Indication (Select all that apply): Sexually Transmitted Infection, Type of Therapy: EmpiricIndications:Disch arge from penis Given 02/23/2025 1:30 PM EST 500 mg Left Ventrogluteal documented in this encounter Additional Health Concerns Active Problems Noted Date Diagnosed Date Help patients manage their type 2 diabetes 02/23 Patient has chronic kidney disease 02/23/2025 Assessment Noted Time PHQ-9 Depression Total Score: 19 025 2:15 PM EDT documented as of this encounter Care Teams Senior Manager Quality Assurance Relationship Specialty Start Date End Date Angelica Lucio MD [address] [place] [phone] PCP - General Internal Medicine 10/03/24 documented as of this encounter
[2025-02-23 18:05] LABS: Appearance Urine Clear; Glucose Urine UA Negative (Negative); PH 6.0 (5.0-9.0); Specific Gravity - Urine 1.015 (1.005-1.025); UMIC TRIGGER UACC YES
[2025-02-23 18:20] LABS: UACC Culture Trigger YES
--- OUTSIDE RECORDS SUMMARY | 2025-02-23 19:12 | XMS_ITS | Encounter Summary ---
Author Organization [employer] Address [address] [facility] 7t [place] [address] Care Team Providers Care Board Worker Name Role Phone Angelica Lucio MD Primary Care Provider [phone] Encounter Details Date Type Department Care Team (Latest Contact Info) Description 02/23/2025 Travel Social History Tobacco Use Types Packs/Day Years [...] PM EDT documented as of this encounter Plan of Treatment Upcoming Encounters Date Type Department Care Team (Late st Contact Info) Description 03/10/2025 3:00 PM EST Office Visit [facility] ADULT DENTAL [address] [place] [address] Adeel Thomas DMD [address] [place] [address] 03/29/2025 9:45 AM EST Office Visit [facility] MED & PEDS [address] [place] [address] Angelica Lucio MD [address] [place] [address] 06/08/2025 11:00 AM EST Office Visit [facility] OPTOMETRY [address] [place] [address] Verenice Vazquez, OD [address] [place] [address] documented as of this encounter Goals Goal Patient Goal Type Associated Problems Recent Progress Patient-Stated? Author Help patients manage their type 2 diabetes Care Plan Help patients manage their type 2 diabetes Cally Garcia MA Patient has chronic kidney disease Care Plan Patient has chronic kidney disease Cally Garcia MA documented as of this encounter Visit Diagnoses Not on filedocumented in this encounter Additional Health Concerns Active Problems Noted Date Diagnosed Date Help patients manage their type 2 diabetes 02/23 Patient has chronic kidney disease 02/23/2025 Assessment Noted Time PHQ-9 Depression Total Score: 19 025 2:15 PM EDT documented as of this encounter Care Teams Board Worker Relationship Specialty Start Date End Date Angelica Lucio MD [address] [place] [phone] PCP - General Internal Medicine 10/03/24 documented as of this encounter
--- OUTSIDE RECORDS SUMMARY | 2025-02-23 19:12 | XMS_ITS | Encounter Summary ---
Author Organization [employer] Address [address] [place] [address] 7[address] [place] [address] Care Team Providers Care Conductor Orchestra Name Role Phone Angelica Lucio MD Primary Care Provider Reason for Visit * Reason Onset Date Comments no show reschedule 03/23/2024 Encounter Details Date Type Department Care Team ([facility] st Contact Info) Description 03/23/2024 Telephone [facility] CHC ADULT DENTAL [address] [place] [address] Adeel Thomas, DMD [address] [place] [address] no show reschedule Social History Tobacco Use [...] Description 03/10/2025 3:00 PM EST Office Visit [facility] ADULT DENTAL [address] [place], [place] [phone] Adeel Thomas, DMD [address] [place], [place] [phone] 03/29/2025 9:45 AM EST Office Visit [facility] MED & PEDS [address] [place], [place] [phone] Angelica Lucio MD [address] [place], [place] [phone] 06/08/2025 11:00 AM EST Office Visit [facility] OPTOMETRY [address] [place], [place] [phone] TarkaVerenice, OD [address] [place] [address] documented as of this encounter Visit Diagnoses Not on filedocumented in this encounter Care Teams Conductor Orchestra Relationship Specialty Start Date End Date Angelica Lucio MD [address] [place], [place] [phone] PCP - General Internal Medicine 10/03/24 documented as of this encounter
--- OUTSIDE RECORDS SUMMARY | 2025-02-23 19:12 | XMS_ITS | Encounter Summary ---
Author Organization [employer] Address [address] [facility] 7t [place] [address] Care Team Providers Care Three Knife Trimmer Name Role Phone Angelica Lucio MD Primary Care Provider [phone] Reason for Visit * Reason Comments Med Refill Encounter Details Date Type Department Care Team ([facility] st Contact Info) Description 09/28/2024 Refill [facility] [address] [place] [phone] Name, MD Dexter [address] [place] [address] Social History Tobacco Use Types Packs/Day Years Used Date Smoking Tobacco: Every Day Cigarettes 0.3 0.5 Passive Smoke Exposure: Past Smokeless Tobacco: Former Alcohol Use Standard Drinks/Week Comments Never 0 (1 standard drink = 0.6 oz pur e alcohol) Housing Stability Answer Date Recorded What is your housing situation today? I do not have housing (Staying with others, in a hotel, in a fci, living outside on the street, on a beach, in a car, or in a park 09/26/[address] you li ve. Do you have problems with any of the following? None of the above 09/26/2024 Food Insecurity Answer Date Recorded Within the [...] off services in your home? No 09/26/2024 Internet Access Answer Date Recorded Internet Access [...] 03/10/2025 3:00 PM EST Office Visit [facility] ADULT DENTAL [address] [place] [address] Adeel Thomas, JESS [address] [place] [address] 03/29/2025 9:45 AM EST Office Visit [facility] MED & PEDS [address] [place] [address] Angelica Lucio MD [address] [place] [address] 06/08/2025 11:00 AM EST Office Visit [facility] OPTOMETRY [address] [place] [address] Verenice Vazquez, OD [address] [place] [address] documented as of this encounter Visit Diagnoses Not on filedocumented in this encounter Care Teams Three Knife Trimmer Relationship Specialty Start Date End Date Angelica Lucio MD [address] [place] [address] PCP - General Internal Medicine 10/03/24 documented as of this encounter
--- OUTSIDE RECORDS SUMMARY | 2025-02-23 19:12 | XMS_ITS | Encounter Summary ---
Author Organization [employer] Address [address] [place] [address] 7[address] [place] [address] Care Team Providers Care Belting And Webbing Inspector Name Role Phone Angelica Lucio MD Primary Care Provider Reason for Visit * Reason Onset Date Comments rs no show 05/16/2024 Encounter Details Date Type Department Care Team ([facility] st Contact Info) Description 05/16/2024 Telephone [facility] CHC ADULT DENTAL [address] [place] [address] Adeel Thomas, DMD [address] [place] [address] rs no show Social History Tobacco Use [...] Miscellaneous Notes * Telephone Encounter - Seda Rviers - 05/16/2024 11:43 AM EST Patient is [...] Description 03/10/2025 3:00 PM EST Office Visit [facility] ADULT DENTAL [address] [place] [address] Adeel Thomas, DMD [address] [place] [address] 03/29/2025 9:45 AM EST Office Visit [facility] MED & PEDS [address] [place] [address] Angelica Lucio MD [address] [place], [place] [phone] 06/08/2025 11:00 AM EST Office Visit [facility] OPTOMETRY [address] [place] [address] TarVerenice shaw, OD [address] [place] [address] documented as of this encounter Visit Diagnoses Not on filedocumented in this encounter Care Teams Belting And Webbing Inspector Relationship Specialty Start Date End Date Angelica Lucio MD [address] [place] [address] PCP - General Internal Medicine 10/03/24 documented as of this encounter
--- OUTSIDE RECORDS SUMMARY | 2025-02-23 19:12 | XMS_ITS | Encounter Summary ---
Author Organization [employer] Address [address] [facility] 7 [place] [address] Care Team Providers Care Machinist First Class Name Role Phone Angelica Lucio MD Primary Care Provider [phone] Reason for Visit * Reason Comments Med Refill Encounter Details Date Type Department Care Team ([facility] Contact Info) Description 02/22/2025 Refill [facility] [address] [place] [address] Angelica Lucio MD [address] [place] [address] Smoking addiction Social History Tobacco Use Types Packs/Day Years [...] Description 03/10/2025 3:00 PM EST Office Visit [facility] [address] [place] [address] Adeel Thomas, DMD 505 [place] [address] 03/29/2025 9:45 AM EST Office Visit [facility] [address] [place] [address] Angelica Lucio MD [address] [place] [address] 06/08/2025 11:00 AM EST Office Visit [facility] [address] [place] [address] Verenice Vazquez, OD [address] [place] [address] documented as of this encounter Visit Diagnoses Diagnosis Smoking addiction documented in this encounter Additional Health Concerns Assessment Noted Time PHQ-9 Depression Total Score: 19 025 2:15 PM EDT documented as of this encounter Care Teams Machinist First Class Relationship Specialty Start Date End Date Angelica Lucio MD [address] [place] [phone] PCP - General Internal Medicine 10/03/24 documented as of this encounter
--- OUTSIDE RECORDS SUMMARY | 2025-02-23 19:12 | XMS_ITS | Clinical Summary ---
Author Organization [employer] Address [address] [facility] 7t [place] [address] Care Team Providers Care Side Trimmer Name Role Phone Angelica Lucio MD Primary Care Provider Allergies No known active allergies Medications * This document contains information received from the source organization and may not represent a complete record from that organization. Sod Fluoride-Potas sium Nitrate 1.1-5 % pasteIndicatio ns:Dental caries [place] teeth for 2 minutes, morning and night. Spit, do not rinse. Do not eat or drink anything for 30 minutes following brushing. 112 g 3 06/09/19 24 Active ibuprofen 600 MG tabletIndicati ons:Dental abscess Take 1 tablet (600 mg) by mouth every 6 (six) hours if needed for mild pain for up to 20 doses. 20 tablet 06/09/19 24 Active nicotine (Nicoderm CQ) 14 MG/24HR patch Place 1 patch on the skin 1 (one) time each day at the same time. 42 patch 01/13/20 24 Active Additional Information Patient not taking.Reported on 02/07/2025 nicotine (Nicoderm CQ) 7 MG/24HR patch Place 1 patch on the skin 1 (one) time each day at the same time. 14 patch 01/13/20 24 Active Additional Information Patient not taking.Reported on 02/07/2025 nicotine polacrilex (Commit) 4 MG lozenge Dissolve 1 lozenge (4 mg) in the mouth every 2 (two) hours if needed for smoking cessation. 100 lozenge 01/13/20 24 Active Additional Information Patient not taking.Reported on 02/07/2025 albuterol 108 (90 Base) MCG/ACT inhaler Inhale 2 puffs every 4 (four) hours if needed for wheezing or shortness of breath. 18 g 1 01/13/20 24 Active Additional Information Patient not taking.Reported on 02/07/2025 Spacer/Aero-Ho lding Chambers (OptiChamber Aruna) misc 1 each every 4 (four) hours if needed (asthma). 1 each 01/13/20 24 Active Additional Information Patient not taking.Reported on 02/07/2025 ibuprofen 400 MG tablet Take 1 tablet (400 mg) by mouth every 6 (six) hours if needed for moderate pain or fever for up to 30 doses. 30 tablet 01/13/20 24 Active Sodium Fluoride 1.1 % creamIndicatio ns:Dental caries [place] teeth for 2 minutes, morning and night. Spit, do not rinse. Do not eat or drink anything for 30 minutes following use. 112 g 3 09/10/19 25 Active Additional Information Patient not taking.Reported on 02/07/2025 gabapentin (Neurontin) 600 MG tabletIndicati ons:Anxiety and depression,Chr onic pain syndrome Take 1 tablet (600 mg) by mouth 2 times daily. 60 tablet 2 01/10/20 25 Active PARoxetine (Paxil) 10 MG tabletIndicati ons:Anxiety and depression Take 1 tablet (10 mg) by mouth in the morning. 30 tablet 11 01/10/20 25 026 Active nicotine (Nicoderm, Step 3) 7 MG/24HR patchIndicatio ns:Smoking addiction PLACE 1 PATCH ON THE SKIN 1 TIME EACH DAY AT THE SAME TIME. 28 patch 02/18/20 25 Active nicotine (Nicoderm CQ) 21 MG/24HR patchIndicatio ns:Smoking addiction Place 1 patch on the skin 1 (one) time each day at the same time. 30 patch 02/24/20 25 025 Active doxycycline (Vibra-Tabs) 100 MG tabletIndicati ons:Discharge from penis Take 1 tablet (100 mg) by mouth 2 times daily for 10 days. Take with a full glass of water and do not lie down for at least 30 minutes after. 20 tablet 02/24/20 25 025 Active nicotine (Nicoderm, Step 3) 7 MG/24HR patchIndicatio ns:Smoking addiction PLACE 1 PATCH ON THE SKIN 1 TIME EACH DAY AT THE SAME TIME. 28 patch 11/30/19 25 025 Discontinued Hospital, Clinic, or Other Facility Administered Medication Ordered Dose Route Frequency Start Date End Date Status cefTRIAXone (Rocephin) vial 500 mgIndications:Discharge from penis 500 mg IM Once 02/23/2025 02/23/2025 Ended Active Problems Problem Noted Date Diagnosed Date [...] all clinical information will be sent to [employer] for approval. Pt advised of this. Substance abuse (CMS/HCC) 01/24/2020 Bacteremia 01/04/2020 Psoas abscess, right (CMS/HCC) 01/04/2020 Renal cyst 12/19/2019 Acute respiratory failure with hypoxia (CMS/HCC) 12/17/2019 Delirium 12/17/2019 Weakness of both lower extremities [...] 4 minutes. The patient was provided the [facility] Smokers Quitline [id number]-FW-QUITS Risks of smoking including chronic lung disease, [...] in limb 10/17/2014 Closed fracture of mandible (CMS/HCC) 11/10/2011 Encounters * This document contains information received from the source organization and may not represent a complete record from that organization. Date Type Department Care Team Description 02/23/2025 1:00 PM EST Office Visit [facility] [address] [place] [address] Angelica Lucio MD Anxiety and depression (Primary Dx); Smoking addiction; Type 2 diabetes mellitus without complication, without long-term current use of insulin (HCC); Discharge from penis; Routine screening for STI (sexually transmitted infection) 02/23/2025 Travel 02/22/2025 Refill [facility] [address] [place] [address] Angelica Lucio MD Smoking addiction 02/17/2025 Refill [facility] [address] [place] [address] Angelica Lucio MD Smoking addiction 02/07/2025 1:00 PM EST Office Visit [facility] [address] [place] [address] Adeel Thomas DMD Full coverage crown needed for root canal-treated tooth (Primary Dx) 01/24/2025 8:00 AM EDT Office Visit [facility] [address] [place] [address] Adeel Thomas DMD Full coverage crown needed for root canal-treated tooth (Primary Dx) 01/10/2025 8:00 AM EDT Office Visit [facility] [address] [place] [address] Adeel Thomas DMD Full coverage crown needed for tooth at risk for fracture (Primary Dx); Full coverage crown needed for root canal-treated tooth 01/09/2025 1:15 PM EDT Office Visit [facility] [address] [place] [address] Angelica Lucio MD Annual physical exam (Primary Dx); Anxiety and depression; Anxiety and depression; Chronic pain syndrome; Varicocele; Onychomycosis; Type 2 diabetes mellitus without complication, without long-term current use of insulin (HCC); Screening for colon cancer; Encounter for vaccination; Encounter for immunization 01/09/2025 Travel 01/02/[address] [facility] [address] [place] [phone] Angelica Lucio MD No Show 12/30/2024 Telephone [facility] [address] [place] [address] Angelica Lucio MD Chart Prep 12/26/[address] [facility] [address] [place] [phone] Angelica Lucio MD Pre-visit Planning (Pre visit planning LVM ) 12/26/2024 Refill [facility] [address] [place] [address] Angelica Lucio MD Anxiety and depression; Chronic pain syndrome 12/23/2024 9:00 AM EDT Office Visit [facility] [address] [place] [address] Adeel Thomas, JESS Full coverage crown needed for tooth at risk for fracture (Primary Dx); Dental caries; Full coverage crown needed for root canal-treated tooth 12/16/2024 Travel 11/30/2024 11:00 AM EDT Office Visit [facility] [address] [place] [address] Adeel Thomas DMD Dental caries (Primary Dx); Partial edentulism, unspecified edentulism class 11/28/2024 Refill [facility] [address] [place] [address] Angelica Lucio MD Smoking addiction from Last 3 Months Immunizations Immunization Administration Dates Next Due Hep A, Adult 09/13/2020 Hep B, adult 07/09/2021,09/13/2020 Influenza injectable quadriv alent preservative free 12/10/2021 Influenza, IIV3, injectable 11/19/2011, 7 Influenza, seasonal, injecta ble, preservative free 01/09/2025 MMR 07/24/2004 Pfizer Covid-19 Vaccine 12+ 01/09/2025 TD (adult), 2 Lf tetanus tox oid, preservative free, adsorbed 06/18/2023 Tdap 12/28/2021,07/09/2021,03/16/2007 Family History Medical History Relation Name Comments Hypertension Father Liver disease Father Hypertension Mother Relation Name Status Comments Father Mother Social History Tobacco Use Types Packs/Day Years Used Date Smoking Tobacco: Every Day Cigarettes 0.3 0.5 Passive Smoke Exposure: Past Smokeless Tobacco: Former Tobacco Cessation:Ready to Q uit: Not Asked; Counseling Given: Not Answered Alcohol Use Standard Drinks/Week Comments Never 0 (1 standard drink = 0.6 oz pur e alcohol) Depression Answer Date Recorded Patient Health Questionnaire-9 Score 10/03/2024 Patient Health Questionnaire-9 Score 10/03/2024 Last PHQ-9: Questionnaire Data Not on [...] Pulse 91 02/23/2025 1:13 PM EST Temperature 36.8 C (98.3 F) 10/03/2024 1:51 PM EDT Respiratory Rate 20 02/23/2025 1:13 PM EST Oxygen Saturation 97% 02/23/2025 1:13 PM EST Inhaled Oxygen Concentration - - Weight 103 kg (227 lb) 02/23/2025 1:13 PM EST Height 188 cm (6' 2 ) 02/23/2025 1:13 PM EST Body Mass Index 29.15 02/23/2025 1:13 PM EST Plan of Treatment Upcoming Encounters Date Type Department Care Team (Late st Contact Info) Description 03/10/2025 3:00 PM EST Office Visit [facility] [address] [place] [address] Adeel Thomas DMD 505 [place] [address] 03/29/2025 9:45 AM EST Office Visit [facility] [address] [place], [place] [phone] Angelica Lucio MD [address] [place] [address] 06/08/2025 11:00 AM EST Office Visit [facility] [address] [place], [place] [phone] TarVerenice shaw, OD [address] [place] [address] Health Maintenance Due Date Last Done Comments CT Colonography 1976 Colonoscopy 1976 FIT 1976 Sigmoidoscopy 1976 Disability Screening 1976 Diabetes: Foot Exam 1986 Eye Exam 1986 Family Planning (PISQ) 06/07/1991 Diabetes: Urine Protein Screening 06/07/1995 Pneumococcal Vaccine: Pediatrics (0 to 5 Years) and At-Risk Patients (6 to 49) Years (1 of 2 - PCV) 06/07/1995 Hepatitis A Vaccines (2 of 2 - Risk 2-dose series) 03/15/2021 09/13/2020 Hepatitis B Vaccines (3 of 3 - 19+ 3-dose series) 09/03/2021 07/09/2021, 09/13/2020 FOBT 02/12/2023 02/12/2022 Colorectal Cancer Screening 02/12/2025 FIT DNA/Cologuard 02/12/2025 02/12/2022 Dental Oral Exam 03/12/2025 09/09/2024, 06/09/2023 Dental Prophylaxis 03/12/2025 09/09/2024 Depression Monitoring 04/04/2025 10/03/2024, 025 Diabetes: Hemoglobin A1C 07/10/2025 025, 10/03/2024, 07/04/2024 Dental X-Ray: Bitewings 09/10/2025 09/09/2024, 06/08 Alcohol/Substance Use Screening 10/03/2025 10/03/2024 SDOH Screening 10/03/2025 10/03/2024 Lipid Panel 10/04/2025 10/04/2024 Tobacco Screening 02/23/2026 02/23/2025 Zoster Vaccines (1 of 2) 2026 Dental X-Ray: Full Mouth 06/09/2026 06/09/2023, 11/04 DTaP/Tdap/Td Vaccines (5 - Td or Tdap) 06/17/2033 06/18/2023, 12/28/2021, 07/09/2021, Additional history exists RSV Patients and Patients Aged 60 years or older (1 - 1-dose 75+ series) 06/07/2051 HIV Screening Completed 10/04/2024 COVID-19 Vaccine Completed 01/09/2025 Influenza Vaccine Completed 01/09/2025, , 12/28/2017, Additional history exists HIB Vaccines Aged Out No longer eligi ble based on patient's age to complete this topic HPV Vaccines Aged Out No longer eligi ble based on patient's age to complete this topic IPV Vaccines Aged Out No longer eligi ble based on patient's age to complete this topic Meningococcal B Vaccine Aged Out No l onger eligible based on patient's age to complete this topic Meningococcal Vaccine Aged Out No demond consuelo eligible based on patient's age to complete this topic RSV under 20 months Aged Out No longe r eligible based on patient's age to complete this topic Rotavirus Vaccines Aged Out No longer eligible based on patient's age to complete this topic Goals Goal Patient Goal Type Associated Problems Recent Progress Patient-Stated? Author Help patients manage their type 2 diabetes Care Plan Help patients manage their type 2 diabetes Cally Garcia MA Patient has chronic kidney disease Care Plan Patient has chronic kidney disease No Cally Stallings MA Procedures Procedure Name Priority Date/Time Associated Diagnosis Comments POCT GLUCOSE Routine 02/23/2025 2:15 PM EST Type 2 diabetes mellitus without complication, without long-term current use of insulin (HCC) URINALYSIS, COMPLETE, WITH REFLEX TO CULTURE Routine 02/23/2025 1:50 PM EST URINALYSIS WITH REFLEX MICROSCOPIC Routine 02/23/2025 1:50 PM EST Discharge from penis Routine screening for STI (sexually transmitted infection) CASE PRESENTATION, DETAILED AND EXTENSIVE TREATMENT PLANNING Routine 02/07/2025 1:00 PM EST Full coverage crown needed for root canal-treated tooth 5 CROWN - PORCELAIN/CERAMIC Routine 02/07/2025 1:00 PM EST Full coverage crown needed for root canal-treated tooth CASE PRESENTATION, DETAILED AND EXTENSIVE TREATMENT PLANNING Routine 01/24/2025 8:00 AM EDT Full coverage crown needed for root canal-treated tooth 5 CROWN PREP Routine 01/24/2025 8:00 AM EDT Full coverage crown needed for root canal-treated tooth CASE PRESENTATION, DETAILED AND EXTENSIVE TREATMENT PLANNING Routine 01/10/2025 8:00 AM EDT Full coverage crown needed for tooth at risk for fracture Full coverage crown needed for root canal-treated tooth 7 CROWN - PORCELAIN/CERAMIC Routine 01/10/2025 8:00 AM EDT Full coverage crown needed for tooth at risk for fracture 11 CROWN - PORCELAIN/CERAMIC Routine 01/10/2025 8:00 AM EDT Full coverage crown needed for root canal-treated tooth 8 CROWN - PORCELAIN/CERAMIC Routine 01/10/2025 8:00 AM EDT Full coverage crown needed for tooth at risk for fracture 9 CROWN - PORCELAIN/CERAMIC Routine 01/10/2025 8:00 AM EDT Full coverage crown needed for tooth at risk for fracture POCT GLUCOSE Routine 01/09/2025 2:38 PM EDT Type 2 diabetes mellitus without complication, without long-term current use of insulin (HCC) POCT GLYCATED HEMOGLOBIN, TOTAL Routine 01/09/2025 2:37 PM EDT Type 2 diabetes mellitus without complication, without long-term current use of insulin (HCC) CASE PRESENTATION, DETAILED AND EXTENSIVE TREATMENT PLANNING Routine 12/23/2024 9:00 AM EDT Full coverage crown needed for tooth at risk for fracture Dental caries Full coverage crown needed for root canal-treated tooth 7,8,9,11 CROWN PREP Routine 12/23/2024 9 :00 AM EDT Full coverage crown needed for tooth at risk for fracture Dental caries Full coverage crown needed for root canal-treated tooth NO CHARGE PROCEDURE Routine 11/30/2024 1 1:00 AM EDT Dental caries Partial edentulism, unspecified edentulism class 4 COMPOSITE FILLING Routine 11/30/2024 12:00 AM EDT HIV 1/2 ANTIGEN/ANTIBODY, FOURTH GENERATION W/RFL Routine 10/04/2024 8:34 AM EDT History of diabetes mellitus LIPID PANEL, STANDARD Routine 10/04/2024 8:34 AM EDT History of diabetes mellitus Anxiety and depression Full PROPHYLAXIS - ADULT Routine 09/09/2024 2:00 PM EDT Dental caries Partial edentulism, unspecified edentulism class BITEWING - SINGLE RADIOGRAPHIC IMAGE Routine 09/09/2024 2:00 PM EDT Dental caries Partial edentulism, unspecified edentulism class PERIODIC ORAL EVALUATION - ESTABLISHED PATIENT Routine 09/09/2024 2:00 PM EDT Dental caries Partial edentulism, unspecified edentulism class INTRAORAL - COMPLETE SERIES OF RADIOGRAPHIC IMAGES Routine 06/09/2023 3:30 PM EST Dental abscess Dental caries Gingivitis from Last 3 Months or Most Recently Relevant to Health Maintenance Results * POCT Glucose (02/23/2025 2:15 PM EST) Only the most recent of2 resultswithin the time period is included. Glucose Blood, POC 67 60 - 200 mg/dL QC Media Lot # [id number] Lot# Expiration Date [id number] Comment:random Blood Capillary blood specimen / Unknown 02/23/2025 2:15 PM EST us Angelica Lucio MD POINT OF CARE TEST ENTER/ED IT ORDERABLES Final Result * (ABNORMAL) Urinalysis, Complete, with Reflex to Culture (02/23/2025 1:50 PM EST) Color Urine Yellow [facility] Appearance Urine Clear [facility] PH 6.0 5.0 - 9.0 [facility] Glucose Urine UA Negative Negative mg/dL [facility] Urine Blood Negative Negative [facility] Specific [place] - Urine 1.015 1.005 - 1.025 [facility] Urine Protein Negative Neg-Trace mg/dL [facility] Urine Ketones Negative Negative mg/dL [facility] Nitrite Urine Negative Negative [facility] Leukocyte Esterase Urine Moderate (2+)(A) Negative [facility] RBC Urine 0-2 0 - 2 /HPF [facility] Urine WBC >50(A) 0 - 5 /HPF [facility] Urine Squamous Epithelial Cell 0-2 0 - 2 /HPF [facility] Urine Bacteria None Seen None Seen [facility] Hyaline Casts, Urine 0-2 0 - 2 /LPF [facility] 02/23/2025 1:50 PM EST 02/23/2025 5:55 PM EST Narrative [facility] - 02/23/2025 6:20 PM EST [id number], Clean Catch Angelica Lucio MD LAB URINE ORDERABLES Final Result [facility] [address] [place] [phone] * (ABNORMAL) Urinalysis w/reflex microscopic (02/23/2025 1:50 PM EST) Color Urine Yellow [facility] Appearance Urine Clear [facility] PH 6.0 5.0 - 9.0 [facility] Glucose Urine UA Negative Negative mg/dL [facility] Urine Blood Negative Negative [facility] Specific [place] - Urine 1.015 1.005 - 1.025 [facility] Urine Protein Negative Neg-Trace mg/dL [facility] Urine Ketones Negative Negative mg/dL [facility] Nitrite Urine Negative Negative [facility] Leukocyte Esterase Urine Moderate (2+)(A) Negative [facility] Urine (Urine, Random) 02/23/2025 1:50 PM EST 02/23/2025 5:55 PM EST Narrative [facility] - 02/23/2025 6:18 PM EST [id number], Clean Catch us Angelica Lucio MD LAB URINE ORDERABLES Final Result [facility] [address] [place] [phone] [phone] * POCT Hgb A1c (01/09/2025 2:37 PM EDT) Hemoglobin A1C 5.5 4.0 - 5.7 % QC Media Lot # [id number] Lot# Expiration Date ,[id number] Blood 01/09/2025 2:37 PM EDT us Angelica Lucio MD POINT OF CARE TEST ENTER/ED IT ORDERABLES Final Result * HIV-1/2 Antigen and Antibodies, Fourth Generation, with Reflexes (10/04/2024 8:34 AM EDT) HIV AB/AG Nonreactive Nonreactive [facility] Comment:HIV-1 p24 Ag and/or HIV-1/HIV-2 Ab not detected.A test result that is nonreactive does not exclude thepossibility of exposure to or infection with HIV-1 and/orHIV-2. Nonreactive results in this assay for individualswith prior exposure to HIV-1 and/or HIV-2 may be due toantigen and antibody levels that are below the limit ofdetection of this assay.The [employer] HIV Ag/Ab Combo assay result andsupplemental assay results should be interpreted inconjunction with the patient's clinical presentation,history and other laboratory results. If the results areinconsistent with clinical evidence, additional testing issuggested to confirm the result. Blood Venous blood specimen / Unknown 10/04/2024 8:34 AM EDT 10/04/2024 2:27 PM EDT us Angelica Lucio MD LAB BLOOD ORDERABLES Final Result Performing Organization Address [facility] Co de Phone Number [facility] [address] [place] [address] [phone] * (ABNORMAL) Lipid Panel, Standard (10/04/2024 8:34 AM EDT) Triglycerides 107 <150 mg/dL [facility] Comment:Desirable Triglyceri de: less than 150 mg/dLBorderline High Triglyceride 150-199 mg/dLHigh Triglyceride: 200-499 mg/dLVery High Triglyceride: greater than or equal to 5OO mg/dL Cholesterol 126 <200 mg/dL [facility] Comment:Desirable Cholestero l: less than 200 mg/dLBorderline High Cholesterol: 200-239 mg/dLHigh Cholesterol: greater than 239 mg/dL LDL Cholesterol Calculated 75 <100 mg/dL [facility] Comment:Desirable LDL: less than 100 mg/dLNear Optimal/Above Optimal LDL: 110- 129 mg/dLBorderline High LDL: 130-159 mg/dLHigh LDL: 160-189 mg/dLVery High LDL: greater than or equal to 190 mg/dL HDL Cholesterol 30(L) >40 mg/dL [facility] Comment:Desirable HDL: great er than 40 mg/dL Note: This HDL assay may give artificially low results in patients with liver disease. Blood Venous blood specimen / Unknown 10/04/2024 8:34 AM EDT 10/04/2024 2:29 PM EDT Angelica Lucio MD LAB BLOOD ORDERABLES Final Result Performing Organization Address [facility]/ZIP Co de Phone Number [facility] [address] [place] [address] [phone] from Last 3 Months or Most Recently Relevant to Health Maintenance Additional Health Concerns Active Problems Noted Date Diagnosed Date Help patients manage their type 2 diabetes 02/23 Patient has chronic kidney disease 02/23/2025 Insurance [facility] Care Teams Side Trimmer Relationship Specialty Start Date End Date Angelica Lucio MD [address] [place] [address] [place] [address] PCP - General Internal Medicine 10/03/24
--- OUTSIDE RECORDS SUMMARY | 2025-02-23 19:12 | XMS_ITS | Encounter Summary ---
Author Organization [employer] Address [address] [place] [address] [address] [place] [address] Care Team Providers Care Sand Polisher Name Role Phone Angelica Lucio MD Primary Care Provider Reason for Visit * Reason Onset Date Comments rs no show visit 06/15/2024 Encounter Details Date Type Department Care Team ([facility] st Contact Info) Description 06/15/2024 Telephone [facility] [address] [place], [place] [phone] Adeel Thomas, DMD [address] [place] [address] rs no show visit Social History Tobacco [...] Description 03/10/2025 3:00 PM EST Office Visit [facility] ADULT DENT[facility] [address], [place] [phone] Adeel Thomas, JESS [address] [place] [address] 03/29/2025 9:45 AM EST Office Visit [facility] [address], [place] [phone] Angelica Lucio MD [address] [place], [place] [phone] 06/08/2025 11:00 AM EST Office Visit [facility] [address] [place], [place] [phone] TarkaVerenice, OD [address] [place] [address] documented as of this encounter Visit Diagnoses Not on filedocumented in this encounter Care Teams Sand Polisher Relationship Specialty Start Date End Date Angelica Lucio MD [address] [place] [address] PCP - General Internal Medicine 10/03/24 documented as of this encounter
[2025-02-24 08:14] LABS: HIV Num 1 0.05 S/CO (0.00-0.99); ~HepC Num1 15.41 S/CO (0.00-0.79); ~Hepatitis C Antibody Reactive (Nonreactive)
[2025-02-27 08:13] LABS: HCV Log PCR <1.18 NOT DETECTED Log IU/mL (NOT DETECTED); HepC Viral Load <15 NOT DETECTED IU/mL (NOT DETECTED)
== END 2025-02-23 13:48 | disposition home or self-care (01) ==
LOC: HO.CHCLDS 13:47
PROVIDERS: Visit Provider Internal Medicine
DX: Z11.3 Encounter for screening for infections with a predominantly sexual mode of transmission (principal); R36.9 Urethral discharge, unspecified; Z01.84 Encounter for antibody response examination; Z11.4 Encounter for screening for human immunodeficiency virus [HIV]
CPT/HCPCS: 36415; 81001; 86592; 86803; 87086; 87389; 87522